=== PATIENT | female | born 1955 | race Caucasian/White ===

== ENCOUNTER → 2016-12-25 | Outpatient (CLI) | payer OTHER ==
[~2016-12-25] VITALS: Ht 160 cm; Wt 85.3 kg
[~2016-12-25] MED LIST: ASPI-110 PO; BIOT1000 PO; CALC1TAB PO; CALCTAB75 PO; GABA100C4 PO; INSULIN HUMAN REGULAR 1,000 UNITS/10 ML VIAL SQ PRN; KRIL300C3 PO; LACTATED RINGER'S 1000 ML IV SCH; LISI20TA PO; LORA10TA PO; MELAPOW2 PO; METOPROLOL TARTRATE 25 MG TAB PO PRN; MULT-120 PO; PROPOFOL 200 MG/20 ML AMP IV ONE; ROSU1TAB6 PO; SODIUM CHLORID 0.9% 500 ML IV SCH; WOMETAB
[2016-12-25 11:34] VITALS: BP 127/67; PULSE 88; RESP 16; TEMP 98.6; O2SAT 96
[2016-12-25 12:46] VITALS: TEMP 97.4
[2016-12-25 13:06] VITALS: BP 134/65; PULSE 69; RESP 16; O2SAT 96
== END ==
LOC: HEND 10:26
DX: Z86.010 Personal history of colon polyps (principal)
CPT/HCPCS: J7120